=== PATIENT | female | born 1950 | race Caucasian/White ===

== ENCOUNTER 2018-09-25 13:02 | Emergency (ER) | payer OTHER ==
[2018-09-25 13:06] VITALS: TEMP 98.1; BMI 24.9
--- NOTE | 2018-09-25 13:38 | ED.PDOC ---
General ED Provider: Dr. ANDREW DOSHI Chief Complaint: Eye Problem Stated Complaint: SUDDEN ONSET OF BLEEDING LT EYE-SUB CONJUNCTIVA WHILE ATTENDING [employer] THIS MORNING AFTER GOING TO [facility] [place]. STRANGE SENSATION LT EYE; CONCERNED OVER HER EVENT. DENIES CHANGES IN HER VISION, BLURRING OF VISION OR PAIN. Time Seen by Physician: 13:20 Mode of Arrival: Walk-In Information Source: Patient Exam Limitations: No limitations Primary Care Provider: ANDREW NITEO Nursing and Triage Documentation Reviewed and Agree: Yes Does patient meet sepsis criteria?: No System Inflammatory Response Syndrome: Not Applicable Sepsis Protocol: For patient's 13 years and over: Temp is 96.8 and below OR 101 and greater Pulse >90 BPM Resp >20/minute Acutely Altered Mental Status Are patient's symptoms suggestive of a new infection, such as: -Pneumonia -Skin, Soft Tissue -Endocarditis -UTI -Bone, Joint Infection -Implantable Device -Acute Abdominal Infection -Wound Infection -Meningitis -Blood Stream Catheter Infection -Unknown EENT Complaint Exam - Eye Complaint/Exam Visual Acuity Right Eye: 20/30 Visual Acuity Left Eye: 20/20 Review of Systems - Review Of Systems Constitutional: Reports: No symptoms Eyes: Reports: No symptoms, Foreign body sensation (OS) Ears, Nose, Mouth, Throat: Reports: No symptoms Respiratory: Reports: No symptoms Cardiac: Reports: No symptoms GI: Reports: No symptoms : Reports: No symptoms Musculoskeletal: Reports: No symptoms Skin: Reports: No symptoms Neurological: Reports: No symptoms, Other (anxiety/feel buzzing sensation in head) Endocrine: Reports: No symptoms Hematologic/Lymphatic: Reports: No symptoms All Other Systems: Reviewed and Negative Past Medical History - Past Medical History Previously Healthy: Yes Endocrine: Reports: None Cardiovascular: Reports: None Respiratory: Reports: None Hematological: Reports: None Gastrointestinal: Reports: None Genitourinary: Reports: None Neuro/Psych: Reports: Anxiety Musculoskeletal: Reports: None Cancer: Reports: None Last Menstrual Period: N/A - Surgical History General Surgical History: Reports: None - Family History Family History: Reports: None - Social History Smoking Status: Never smoker Hx Substance Use: No Alcohol Screening: None - Immunizations Tetanus Shot up to Date: Yes Physical Exam - Physical Exam Appearance: Well-appearing, No pain distress, Well-nourished Ill-appearing: None Pain Distress: None Eyes: RAISSA, EOMI, Conjunctiva clear, Conjunctiva inflammed (sub conjucntival hemorrhabe OS) Interpretation - EKG Interpretation Interpretation: RBBB. poss old inf wall mi Critical Care Note - Critical Care Note Total Time (mins): 30 Course - Course Hematology/Chemistry: 09/25/18 13:48 09/25/18 13:48 Vital Signs: Temp Pulse Resp BP Pulse Ox 09/25/18 13:03 98.1 F 66 16 167/89 H 99 Departure - Departure Time of Disposition: 16:30 Disposition: HOME SELF-CARE Discharge Problem: Subconjunctival hemorrhage of left eye, Hypertension, RBBB Instructions: Subconjunctival Hemorrhage (ED), Heart Block (ED), Hypertension ( ED) Condition: Good Pt referred to PMD for follow-up: Yes (See Dr Nieto in next 2-3 days) IPMP verified?: No Additional Instructions: Monitor BP at home Low salt diet See PCP this week Warm compresses to lt eye Allergies/Adverse Reactions: Allergies codeine Adverse Reaction (Verified 09/25/18 13:06) Penicillins Adverse Reaction (Verified 09/25/18 13:06) Home Medications: Ambulatory Orders 1 [No Reported Medications] 09/25/18 Disposition Discussed With: Patient Psychological Complaint Exam - Psychiatric Complaint/Exam Patient Complains Of: Present: Other (anxiety and stress) Onset/Duration: several yrs Symptoms Are: Still present Timing: Intermittent Episodes Lasting: Hours Initial Severity: Moderate Current Severity: Moderate Character: Present: Fearful, Anxious Aggravating: Reports: Medication noncompliance (does not always take her clonazepam) Social Withdrawal Present: No Social Isolation Present: No Prior Suicide Attempt: No Injury From Prior Suicide Attempt: No Mood: Present: Anxious Appearance: Present: Clean Thought Process: Present: Logical Insight: Present: Good Memory: Intact Judgement: Normal Danger To Others: No Differential Diagnoses: Anxiety
[2018-09-25] MEDS ORDERED: ZESTRIL PO STA (14:41)
[2018-09-25 16:35] VITALS: BP 142/72
== END 2018-09-25 16:50 | disposition home or self-care (01) ==
LOC: ED 13:02
DX: H11.32 Conjunctival hemorrhage, left eye (principal); I10 Essential (primary) hypertension; I45.10 Unspecified right bundle-branch block; F41.9 Anxiety disorder, unspecified
CPT/HCPCS: 36415; 80053; 85025; 85610; 85730; 93005; 93010; 99284

== ENCOUNTER 2019-01-31 09:54 | Day surgery (SDC) | payer OTHER ==
[2019-01-31 11:06] VITALS: TEMP 98.6
[2019-01-31] MEDS ORDERED: LIDOCAINE HCL 2% LUER-JET ONE (12:30)
[2019-01-31] MEDS ORDERED: VERSED ONE (12:30)
[2019-01-31] MEDS ORDERED: DIPRIVAN 20 ML VIAL IVP ONE (12:30)
[2019-01-31 15:24] VITALS: BP 112/67
--- NOTE | 2019-02-01 12:44 | OP ---
INDICATIONS FOR PROCEDURE: 68 year old female presents for endoscopy. She has heart burn and indigestion and she is also found to be anemic. She is scheduled for colonoscopy screening examination as well. It's been over 10 years since the colonoscopy. MEDICATIONS: SEE ANESTHESIA NOTES. PROCEDURE: ENDOSCOPY. COLONOSCOPY. SNARE POLYPECTOMY. REPORT: The risks, benefits, alternatives and limitations were discussed in detail with the patient. Informed consent was obtained. After adequate sedation was achieved, the video endoscope was introduced in the posterior pharynx and esophagus under direct vision and easily advanced down to the second portion of the duodenum. I then slowly withdrew. The duodenal mucosa appeared unremarkable as did the duodenal bulb. The antrum body is relative unremarkable. The scope was retroflexed to look at the cardia and fundus which was unremarkable. The scope was anteflexed and withdrawn back through the esophagus. There was a small sliding 1cm hiatal hernia. The esophagus appeared relatively unremarkable. The patient tolerated the procedure well with stable vital signs and pulse oximetry throughout. The patient's bed was turned. A digital rectal exam revealed good tone, no masses. The colonoscope was introduced into the rectum and advanced under direct visual guidance to the cecum. The cecum was identified by the appendiceal orifice and IC valve. I then slowly withdrew the scope in a circumferential manner and examined the mucosa quite carefully. I looked on the proximal and distal sides of folds and flexures as best as possible. I was able to retroflex the scope in the right colon and the left colon to increase visualization. On the distal side of the hepatic flexure is two small polyps about 5mm in size and sessile. I removed both of these by snare technique. They were retrieve. The remaining colon was unremarkable other than small hemorrhoids noted on retroflex view of the anal canal, they were non-engorged. The prep was good and the withdraw time was 7 minutes and 45 seconds. The patient tolerated the procedure well with stable vital signs and pulse oximetry throughout. IMPRESSION: 1. Small 1cm sliding hiatal hernia 2. Otherwise unremarkably endoscopy exam 3. Two small colonic polyps removed 4. Small internal hemorrhoids RECOMMENDATIONS: 1. Strict reflux precautions 2. Await colon polyp pathology if everything is benign as expected recommend a surveillance examination again in 5 years. 3. High fiber diet 4. We will see her back in the office as needed CC: Dr. Marcus PAUL
== END 2019-01-31 14:00 | disposition home or self-care (01) ==
LOC: SURG 09:54
PROVIDERS: ATTEND Internal Medicine Gastroenterology
DX: K62.5 Hemorrhage of anus and rectum (principal); K21.9 Gastro-esophageal reflux disease without esophagitis; D12.3 Benign neoplasm of transverse colon; K64.8 Other hemorrhoids; D64.9 Anemia, unspecified; K44.9 Diaphragmatic hernia without obstruction or gangrene